=== PATIENT | male | born 1960 | race Caucasian/White ===

== ENCOUNTER → 2022-01-19 15:58 | Outpatient (BNVA) | payer MEDICARE, OTHER, SELFPAY | PROVIDERS: PCP Internal Medicine; Visit Provider Anesthesiology | DX: G62.9 Polyneuropathy, unspecified (principal); M51.36 Other intervertebral disc degeneration, lumbar region; G70.00 Myasthenia gravis without (acute) exacerbation; M16.11 Unilateral primary osteoarthritis, right hip | CPT/HCPCS: 99202 ==

== ENCOUNTER → 2022-01-26 08:09 | Outpatient (BNVA) | payer MEDICARE, OTHER, SELFPAY | PROVIDERS: PCP Internal Medicine; Visit Provider Anesthesiology | DX: M51.16 Intervertebral disc disorders with radiculopathy, lumbar region (principal); G70.00 Myasthenia gravis without (acute) exacerbation; M51.36 Other intervertebral disc degeneration, lumbar region; G62.9 Polyneuropathy, unspecified; M16.11 Unilateral primary osteoarthritis, right hip | CPT/HCPCS: Q3014 ==